=== PATIENT | female | born 1975 | race Caucasian/White ===

== ENCOUNTER 2016-10-11 19:19 | Emergency (ER) | payer OTHER ==
[2016-10-11 20:35] LABS: BASO % 0.4 % (0.1-1.2); EOS # 0.2 10_X3_uL (0.0-0.4); EOS % 2.9 % (0.7-5.8); GRAN # 2.9 10_X3_uL (1.6-6.1); GRAN % 52.9 % (34.0-71.1); HEMOGLOBIN 12.8 g/dL (11.2-15.7); LYMPH # 2.1 10_X3_uL (1.2-3.7); LYMPH % 37.4 % (19.3-51.7); MEAN CORPUSCULAR HEMOGLOBIN 30.6 pg (27.0-33.0); MEAN CORPUSCULAR HGB CONC 32.8 g/dL (32.0-36.0); MEAN CORPUSCULAR VOLUME 93.3 fL (79-95); MEAN PLATELET VOLUME 11.7 fl (7.5-11.5); MONO # 0.4 10_X3_uL (0.2-0.9); MONO % 6.4 % (4.7-12.5); PLATELET COUNT 163 x10_3/uL (182-369); RED BLOOD COUNT 4.18 x10_6/uL (3.9-5.2); RED CELL DISTRIBUTION WIDTH 12.8 % (11.7-14.4); WHITE BLOOD COUNT 5.5 x10_3/uL (4.0-10.0)
[2016-10-11 20:48] LABS: BLOOD UREA NITROGEN 14 mg/dL (7-18); CALCIUM 9.3 mg/dL (8.7-10.7); CARBON DIOXIDE 28 mmol/L (21-32); CREATININE 0.8 mg/dL (0.6-1.3); GLUCOSE,RANDOM 119 mg/dL (70-99); POTASSIUM 4.6 mmol/L (3.5-5.1); SODIUM 140 mmol/L (136-145)
== END 2016-10-11 21:31 | disposition home or self-care (01) ==
LOC: ER 19:19
PROVIDERS: Emergency Medicine
DX: J02.9 Acute pharyngitis, unspecified (principal); H92.01 Otalgia, right ear; R53.1 Weakness; R05 Cough; R51 Headache; I10 Essential (primary) hypertension; M06.9 Rheumatoid arthritis, unspecified; G62.9 Polyneuropathy, unspecified; Z90.710 Acquired absence of both cervix and uterus; F17.210 Nicotine dependence, cigarettes, uncomplicated; Z79.899 Other long term (current) drug therapy
CPT/HCPCS: 36415; 80048; 85025; 87070; 87880; 99283